=== PATIENT | female | born 1945 | race Caucasian/White ===

== ENCOUNTER 2021-01-14 10:06 | Day surgery (SDC) | payer MEDICARE ==
[~2021-01-14] VITALS: Ht 157.5 cm; Wt 88.0 kg
[2021-01-14] MEDS ORDERED: RIVA20TA PO (10:55)
[2021-01-14] MEDS ORDERED: CALCIUM PO (10:55)
[2021-01-14] MEDS ORDERED: SOTA120T26 PO (10:55)
[2021-01-14] MEDS ORDERED: AMLO-211 PO (10:55)
[2021-01-14] MEDS ORDERED: ATOR20TA37 PO (10:55)
[2021-01-14] MEDS ORDERED: VIT A PO (10:55)
[2021-01-14] MEDS ORDERED: VIT D PO (10:55)
[2021-01-14] MEDS ORDERED: CO Q10 PO (10:55)
[2021-01-14] MEDS ORDERED: VIT E PO (10:55)
[2021-01-14] MEDS ORDERED: MAGNESIUM PO (10:55)
[2021-01-14] MEDS ORDERED: VIT B12 PO (10:55)
[2021-01-14] MEDS ORDERED: VIT B6 PO (10:55)
[2021-01-14] MEDS ORDERED: VIT C PO (10:55)
[2021-01-14] MEDS ORDERED: CHLORHEXIDINE 15 ML UDC ONE (10:56)
[2021-01-14] MEDS ORDERED: CHLORHEXIDINE 15 ML UDC MM ONE (11:00)
[2021-01-14] MEDS ORDERED: PLEASE ENTER HEIGHT AND WEIGHT MC SCH (11:00)
[2021-01-14] MEDS ORDERED: LACTATED RINGERS 1,000 ML IV SCH (11:00)
[2021-01-14 11:10] VITALS: BP 149/81
[2021-01-14] MEDS ORDERED: EPINEPHRINE 1 MG/ML, 1ML ONE (11:36)
[2021-01-14] MEDS ORDERED: BUPIVACAINE/PF 0.5% ONE (11:36)
[2021-01-14] MEDS ORDERED: MIDAZOLAM 1 MG/ML, 2ML ONE (11:41)
[2021-01-14] MEDS ORDERED: FENTANYL PF 250 MCG/5ML ONE (11:41)
[2021-01-14] MEDS ORDERED: PROPOFOL 10 MG/ML, 20ML ONE ×2 (11:46→11:55)
[2021-01-14] MEDS ORDERED: DEXAMETHASONE 4 MG/ML, 1ML ONE ×2 (11:46→11:55)
[2021-01-14] MEDS ORDERED: ROCURONIUM 10 MG/ML,10ML ONE (11:55)
[2021-01-14] MEDS ORDERED: SUCCINYLCHOLINE 20 MG/ML, 10ML ONE (11:55)
[2021-01-14] MEDS ORDERED: CEFAZOLIN 1,000 MG ONE (11:55)
[2021-01-14] MEDS ORDERED: ONDANSETRON 2MG/ML, 2ML ONE (11:55)
[2021-01-14] MEDS ORDERED: PROMETHAZINE 25 MG/ML, 1ML IVPush PRN (12:30)
[2021-01-14] MEDS ORDERED: ACETAMINOPHEN 325 MG TABLET PO PRN (12:30)
[2021-01-14] MEDS ORDERED: MIDAZOLAM 1 MG/ML, 2ML IV PRN (12:30)
[2021-01-14] MEDS ORDERED: DIAZEPAM 5 MG/ML, 2ML IVPush PRN (12:30)
[2021-01-14] MEDS ORDERED: ALBUTEROL SULFATE 2.5 MG/3 ML NPPB PRN (12:30)
[2021-01-14] MEDS ORDERED: DIPHENHYDRAMINE 50 MG/ML, 1ML IVPush PRN ×2 (12:30)
[2021-01-14] MEDS ORDERED: hydrALAzine 20 MG/ML, 1ML IV PRN (12:30)
[2021-01-14] MEDS ORDERED: ONDANSETRON 2MG/ML, 2ML IVPush PRN (12:30)
[2021-01-14] MEDS ORDERED: OXYcodone 5 MG/5 ML ORAL.SOL UDC PO PRN (12:30)
[2021-01-14] MEDS ORDERED: MEPERIDINE/PF 25MG/0.5ML IVPush PRN (12:30)
[2021-01-14] MEDS ORDERED: FENTANYL PF 100 MCG/2ML IV PRN (12:30)
[2021-01-14] MEDS ORDERED: EPHEDRINE 50 MG/ML, 1ML IVPush PRN (12:30)
[2021-01-14] MEDS ORDERED: LABETALOL 5MG/ML, 20ML IV PRN (12:30)
[2021-01-14] MEDS ORDERED: PROMETHAZINE 12.5 MG SUPP PR PRN (12:30)
[2021-01-14] MEDS ORDERED: HYDROmorphone 1 MG/ML, 1ML INJ IVPush PRN (12:30)
[2021-01-14] MEDS ORDERED: FENTANYL PF 100 MCG/2ML ONE (12:53)
[2021-01-14] MEDS ORDERED: OXYcodone 5 MG/5 ML ORAL.SOL UDC ONE (12:54)
== END 2021-01-14 15:00 | disposition home or self-care (01) ==
LOC: OUT 10:06
PROVIDERS: ATTEND Orthopaedic Surgery
DX: S52.571A Other intraarticular fracture of lower end of right radius, initial encounter for closed fracture (principal); I10 Essential (primary) hypertension; I48.91 Unspecified atrial fibrillation; G47.33 Obstructive sleep apnea (adult) (pediatric); E66.9 Obesity, unspecified; Z20.822 Contact with and (suspected) exposure to COVID-19; Z79.01 Long term (current) use of anticoagulants; Z79.891 Long term (current) use of opiate analgesic; Z79.899 Other long term (current) drug therapy; Z85.828 Personal history of other malignant neoplasm of skin; Z88.0 Allergy status to penicillin; Z88.5 Allergy status to narcotic agent; Z98.890 Other specified postprocedural states; Z82.61 Family history of arthritis; Z82.49 Family history of ischemic heart disease and other diseases of the circulatory system; W17.89XA Other fall from one level to another, initial encounter; Y93.89 Activity, other specified; Y92.89 Other specified places as the place of occurrence of the external cause; Y99.8 Other external cause status
CPT/HCPCS: 25609; 73100; 87635; 93005; C1713; J0171; J1100; J2250; J2704; J3010; J7120; 76000; J0690; J2405; J0330